=== PATIENT | male | born 1980 | race American Indian/Alaskan Native ===

== ENCOUNTER 2017-12-02 21:35 | Emergency (ER) | payer BC ==
[2017-12-02 21:59] VITALS: BP 116/82; PULSE 95; RESP 18; TEMP 99.1; O2SAT 96; BMI 21.4
[2017-12-02] MEDS ORDERED: Sodium Chloride 0.9% 1,000 ML IV STA (23:23)
--- NOTE | 2017-12-02 23:34 | ED PDOC ---
Arrival/HPI - General Chief Complaint: High Blood Sugar Time Seen by Provider: 12/02/17 22:40 Historian: Patient - History of Present Illness Narrative History of Present Illness (Text): 12/02/17 23:33 A 37 year old male, whose past medical history includes diabetes, presents to the emergency department for evaluation of high blood sugar levels. Patient reports he went for a job physical, was advised to see his PMD for treatment of high blood sugar levels. Patient has not been compliant with Metformin medications. Patient denies any other complaints at this time. Symptom Onset: Sudden Symptom Course: Unchanged Activities at Onset: Rest Associated Symptoms (Text): none Past Medical History - Provider Review Nursing Documentation Reviewed: Yes - Cardiac Hx Cardiac Disorders: No - Pulmonary Hx Respiratory Disorders: No - Neurological Hx Neurological Disorder: No - HEENT Hx HEENT Disorder: No - Renal Hx Renal Disorder: No - Endocrine/Metabolic Hx Endocrine Disorders: Yes Hx Diabetes Mellitus Type 2: Yes - Hematological/Oncological Hx Blood Disorders: No - Integumentary Hx Dermatological Disorder: No - Musculoskeletal/Rheumatological Hx Musculoskeletal Disorders: No - Gastrointestinal Hx Gastrointestinal Disorders: No - Genitourinary/Gynecological Hx Genitourinary Disorders: No - Psychiatric Hx Psychophysiologic Disorder: No Hx Substance Use: No Family/Social History - Physician Review Nursing Documentation Reviewed: Yes Family/Social History: No Known Family HX Smoking Status: Never Smoked Hx Alcohol Use: No Hx Substance Use: No Allergies/Home Meds Allergies/Adverse Reactions: Allergies No Known Allergies Allergy (Verified 12/02/17 22:13) Review of Systems - Physician Review All systems were reviewed & negative as marked: Yes - Review of Systems Constitutional: absent: Fevers Neurological: absent: Headache Physical Exam Vital Signs Reviewed: Yes Vital Signs Temp Pulse Resp BP Pulse Ox 12/02/17 21:59 99.1 F 95 H 18 116/82 96 Temperature: Afebrile Blood Pressure: Normal Pulse: Regular Respiratory Rate: Normal Appearance: Positive for: Well-Appearing, Non-Toxic, Comfortable Pain Distress: None Mental Status: Positive for: Alert and Oriented X 3 Finger Stick Blood Glucose: 427 - Systems Exam Head: Present: Atraumatic, Normocephalic Pupils: Present: PERRL Extroacular Muscles: Present: EOMI Conjunctiva: Present: Normal Mouth: Present: Moist Mucous Membranes Neck: Present: Normal Range of Motion Respiratory/Chest: Present: Clear to Auscultation, Good Air Exchange. No: Respiratory Distress, Accessory Muscle Use Cardiovascular: Present: Regular Rate and Rhythm, Normal S1, S2. No: Murmurs Abdomen: No: Tenderness, Distention, Peritoneal Signs Back: Present: Normal Inspection Upper Extremity: Present: Normal Inspection. No: Cyanosis, Edema Lower Extremity: Present: Normal Inspection. No: Edema Neurological: Present: GCS=15, CN II-XII Intact, Speech Normal Skin: Present: Warm, Dry, Normal Color. No: Rashes Psychiatric: Present: Alert, Oriented x 3, Normal Insight, Normal Concentration Medical Decision Making ED Course and Treatment: 12/02/17 23:32 Impression: A 37 year old male with high blood sugar levels. Plan: -- IV fluids -- Reassess and disposition Progress Notes: 12/03/17 01:00 On re-evaluation, patient feels better and is in no acute distress. I have discussed the results and plan with the patient, who expresses understanding. Patient in agreement with plan to be discharged home. Patient is stable for discharge. Patient was instructed to follow up with physician or return if symptoms worsen or new concerning symptoms arise. - Lab Interpretations Lab Results: 12/03/17 00:01 Lab Results 12/03/17 00:41: POC Glucose (mg/dL) 328 H 12/03/17 00:01: Sodium 135, Potassium 4.1, Chloride 96 L, Carbon Dioxide 25, Anion Gap 18, BUN 17, Creatinine 0.7 L, Est GFR ( Amer) > 60, Est GFR ( Non-Af Amer) > 60, Random Glucose 431 H*, Calcium 9.7 I have reviewed the lab results: Yes - Medication Orders Current Medication Orders: Discontinued Medications Sodium Chloride (Sodium Chloride 0.9%) 1,000 mls @ 999 mls/hr IV .Q1H1M STA Stop: 12/03/17 00:23 Last Admin: 12/02/17 23:30 Dose: 999 mls/hr eMAR Start Stop Document 12/02/17 23:30 SS (Rec: 12/03/17 00:08 SS [id number]) Intravenous Solution Start Date 12/02/17 Start Time 23:30 End Date 12/03/17 End time 00:30 Total Infusion Time 60 Metformin HCl (Glucophage) 500 mg PO STAT STA Stop: 12/03/17 00:54 - Scribe Statement The provider has reviewed the documentation as recorded by the Sergio Duke Provider Scribe Attestation: All medical record entries made by the Scribe were at my direction and personally dictated by me. I have reviewed the chart and agree that the record accurately reflects my personal performance of the history, physical exam, medical decision making, and the department course for this patient. I have also personally directed, reviewed, and agree with the discharge instructions and disposition. Disposition/Present on Arrival - Present on Arrival Any Indicators Present on Arrival: No History of DVT/PE: No History of Uncontrolled Diabetes: Yes Urinary Catheter: No History of Decub. Ulcer: No History Surgical Site Infection Following: None - Disposition Have Diagnosis and Disposition been Completed?: Yes Diagnosis: Hyperglycemia, Diabetes mellitus Disposition: HOME/ ROUTINE Disposition Time: 00:55 Patient Plan: Discharge Patient Problems: Current Active Problems Problem Status Onset Diabetes mellitus Acute Hyperglycemia Acute Condition: STABLE Discharge Instructions (ExitCare): Type 2 Diabetes, Hyperglycemia, Adult (DC) Additional Instructions: Take your meds as prescribed/Must follow up with your doctor this week Prescriptions: metFORMIN [glucOPHAGE] 500 mg PO DAILY #21 tab Referrals: Nabil Tate MD [Primary Care Provider] - Follow up with primary Forms: [employer] (Korean)
[2017-12-03 00:39] LABS: BLOOD UREA NITROGEN 17 mg/dL (7-21); CALCIUM 9.7 mg/dL (8.4-10.5); GFR AFRICAN-AMERICAN > 60; GFR NON-AFRICAN AMERICAN > 60
== END 2017-12-03 01:26 | disposition home or self-care (01) ==
LOC: ED 21:35
DX: E11.65 Type 2 diabetes mellitus with hyperglycemia (principal)
CPT/HCPCS: 80048; 82948; 96360; 99283; J7040

== ENCOUNTER 2017-12-13 13:05 | Emergency (ER) | payer BC ==
[2017-12-13 13:06] VITALS: BMI 21.4
[2017-12-13 13:54] VITALS: RESP 18
[2017-12-13] MEDS ORDERED: Sodium Chloride 0.9% 1,000 ML IV STA ×2 (14:23→14:24)
--- NOTE | 2017-12-13 14:25 | ED PDOC ---
Arrival/HPI - General Chief Complaint: High Blood Sugar Time Seen by Provider: 12/13/17 14:22 Historian: Patient - History of Present Illness Narrative History of Present Illness (Text): 12/13/17 14:24 pt p/w + elevated GLUC from Dr Tate's office today; pt states this is not the first time with elevated GLUC; pt states last month he skipped nearly 1 month of his metformin medication because he couldn't obtain the medication; pt arrived to ED few weeks ago and was noted to have severely elevated GLUC and was treated in the ED and represcribed his missing metformin; pt states he has been taking his metformin regularly since then ~ 1-2 weeks ago); pt's check-up/ follow up with Dr Tate (his PCP) was today and at the office noted similarly elevated GLUC; pt states he felt occasional dizziness/weakness, + mild polyuria/ polydipseia; pt states no other complaints otherwise; pt states no fever/chills/ sweats, no cp/sob/palpitations, no abd pain, no n/v, no numbness/tingling, no urinary/bowel changes, no rashes/lesions/bleeding, pt denied slurr speech/ vision changes, no other complaints pt is here for further eval PCP: DR Tate pt is right hand dominate Time/Duration: Prior to Arrival Symptom Onset: Sudden Symptom Course: Unchanged Activities at Onset: Rest Context: Home, Other (Dr Tate's office) Past Medical History - Provider Review Nursing Documentation Reviewed: Yes - Travel History Have you recently traveled outside [place] w/in the past 3 mons?: No - Past History Past History: Non-Contributing - Infectious Disease Hx of Infectious Diseases: None - Cardiac Hx Cardiac Disorders: No - Pulmonary Hx Respiratory Disorders: No - Neurological Hx Neurological Disorder: No - HEENT Hx HEENT Disorder: No - Renal Hx Renal Disorder: No - Endocrine/Metabolic Hx Endocrine Disorders: Yes Hx Diabetes Mellitus Type 2: Yes - Hematological/Oncological Hx Blood Disorders: No - Integumentary Hx Dermatological Disorder: No - Musculoskeletal/Rheumatological Hx Musculoskeletal Disorders: No - Gastrointestinal Hx Gastrointestinal Disorders: No - Genitourinary/Gynecological Hx Genitourinary Disorders: No - Psychiatric Hx Psychophysiologic Disorder: No Hx Substance Use: No Family/Social History - Physician Review Nursing Documentation Reviewed: Yes Family/Social History: No Known Family HX Smoking Status: Never Smoked Hx Alcohol Use: No Hx Substance Use: No Hx Substance Use Treatment: No Allergies/Home Meds Allergies/Adverse Reactions: Allergies No Known Allergies Allergy (Verified 12/13/17 13:57) Home Medications: Home Meds Medication Instructions Recorded Confirmed metFORMIN [glucOPHAGE] 500 mg PO BID 12/13/17 12/13/17 Review of Systems - Review of Systems Constitutional: Normal Eyes: Normal ENT: Normal Respiratory: Normal Cardiovascular: Normal Gastrointestinal: Normal Genitourinary Male: Normal Musculoskeletal: Normal Skin: Normal Neurological: Dizziness, Other (mild weakness) Endocrine: Normal Hemo/Lymphatic: Normal Psychiatric: Normal Physical Exam Vital Signs Reviewed: Yes Vital Signs Temp Pulse Resp BP Pulse Ox 12/13/17 18:16 98.2 F 82 18 124/72 98 12/13/17 15:12 83 18 129/76 100 12/13/17 13:52 98.3 F 79 18 123/75 95 Temperature: Afebrile Blood Pressure: Normal Pulse: Regular Respiratory Rate: Normal Appearance: Positive for: Well-Appearing, Non-Toxic, Comfortable, Other (alert/ awake, GCS = 15, oriented x 3, NAD, resting in bed, comfortable, cooperative, follows command with ease) Pain Distress: None Mental Status: Positive for: Alert and Oriented X 3 Finger Stick Blood Glucose: 456 - Systems Exam Head: Present: Atraumatic, Normocephalic Pupils: Present: PERRL, Other (no nystagmus, no photophobia, sclera anicteric, visual field intact b/l) Extroacular Muscles: Present: EOMI Conjunctiva: Present: Normal Ears: Present: Normal Mouth: Present: Moist Mucous Membranes, Normal Teeth, Other (no drooling/stridor , no exudate/lesions, uvula/tongue are midline, no dysphonia) Pharnyx: Present: Normal Nose (External): Present: Atraumatic Nose (Internal): Present: Normal Inspection Neck: Present: Normal Range of Motion, Trachea Midline, Other (intact ROM, no midline tenderness). No: Meningeal Signs, MIDLINE TENDERNESS, Paraspinal Tenderness Respiratory/Chest: Present: Clear to Auscultation, Good Air Exchange, Other ( CTA b/l, no w/r/r, no tachypenia). No: Respiratory Distress, Accessory Muscle Use Cardiovascular: Present: Regular Rate and Rhythm, Normal S1, S2. No: Murmurs Abdomen: Present: Normal Bowel Sounds, Other (well nourished male, no focal tenderness, no masses/rebound/guarding/rigidity; no العراقي's sign, no mcburney' s point tenderness). No: Tenderness, Distention Back: Present: Normal Inspection. No: CVA Tenderness, Midline Tenderness, Paraspinal Tenderness, Pain with Leg Raise Upper Extremity: Present: Normal Inspection, Normal ROM, NORMAL PULSES, Neurovascularly Intact, Capillary Refill < 2s Lower Extremity: Present: Normal Inspection, NORMAL PULSES, Normal ROM, Neurovascularly Intact, Capillary Refill < 2 s Neurological: Present: GCS=15, CN II-XII Intact, Speech Normal Skin: Present: Warm, Normal Color, Other (cap refill < 1sec, no ulcerations, no petechiae, no rashes) Psychiatric: Present: Alert, Oriented x 3 Medical Decision Making ED Course and Treatment: 12/13/17 14:24 Impression: mild weakness, elevated FS i have consider all the differential diagnosis regarding pt's chief medical complaints/clinical findings, including but are not limited to: mild weakness, elevated FS A/P: mild weakness, elevated FS - labs - iv - supportive care - observe/reevaluation 1600 pt felt improved pt tolerated po well FS is improving gradually 12/13/17 18:26 I try to contact Dr Tate at the office but the office was closed pt remained comfortable pt tolerated po well pt states he is due to f/u with a endocrinologists in 4 days as originally scheduled pt is encouraged to see this doctor vital signs remained stable pt is made aware of his medical results pt is encouraged fluids pt is reminded to keep taking his medications pt is encouraged to keep a BS diary pt will f/u as directed pt will be discharged home Re-evaluation Time: 17:40 Reassessment Condition: Improved - Lab Interpretations Lab Results: 12/13/17 14:30 12/13/17 14:30 Lab Results 12/13/17 17:37: POC Glucose (mg/dL) 196 H 12/13/17 15:50: POC Glucose (mg/dL) 340 H 12/13/17 14:30: Serum Osmolality 300 12/13/17 14:30: pO2 75 H, VBG pH 7.38, VBG pCO2 44.0, VBG HCO3 26.0, VBG Total CO2 27.4, VBG O2 Sat (Calc) 97.4 H, VBG Base Excess 0.5, VBG Potassium 4.3, Sodium 133.0, Chloride 98.0, Glucose 476 H*, Lactate 1.1, FiO2 21.0, Venous Blood Potassium 4.3 12/13/17 14:30: Sodium 134, Chloride 99, Potassium 4.1, Carbon Dioxide 24, Anion Gap 15, BUN 17, Creatinine 0.8, Est GFR ( Amer) > 60, Est GFR (Non- Af Amer) > 60, Random Glucose 457 H*, Calcium 9.1, Total Bilirubin 0.6, AST 21, ALT 22, Alkaline Phosphatase 145 H, Total Protein 7.2, Albumin 4.0, Globulin 3.3 , Albumin/Globulin Ratio 1.2, Lipase 421 H 12/13/17 14:30: WBC 6.8, RBC 3.89, Hgb 11.8 L, Hct 34.8 L, MCV 89.5, MCH 30.3, MCHC 33.9, RDW 12.3, Plt Count 312, MPV 9.8, Gran % 50.5, Lymph % (Auto) 42.2 H , [place] % (Auto) 6.2 H, Eos % (Auto) 0.7 L, Baso % (Auto) 0.4, Gran # 3.41, Lymph # (Auto) 2.9, [place] # (Auto) 0.4, Eos # (Auto) 0.1, Baso # (Auto) 0.03 12/13/17 13:44: POC Glucose (mg/dL) 456 H* I have reviewed the lab results: Yes Interpretation: Abnormal lab values (elevated GLUC but improving) - EKG Interpretation EKG Interpretation (Text): 12/13/17 18:20 NSR at 80 bpm, normal axis, no ectopy, no st-t changes, NORMAL EKG; no old ekg to compare with Interpreted by ED Physician: Yes Type: 12 lead EKG Comparison: No previous EKG avail. - Medication Orders Current Medication Orders: Discontinued Medications Sodium Chloride (Sodium Chloride 0.9%) 1,000 mls @ 999 mls/hr IV .Q1H1M STA Stop: 12/13/17 15:23 Last Admin: 12/13/17 14:38 Dose: 999 mls/hr eMAR Start Stop Document 12/13/17 14:38 SRE (Rec: 12/13/17 14:39 SRE [id number]) Intravenous Solution Start Date 12/13/17 Start Time 14:25 End Date 12/13/17 End time 15:25 Total Infusion Time 60 Sodium Chloride (Sodium Chloride 0.9%) 1,000 mls @ 999 mls/hr IV .Q1H1M STA Stop: 12/13/17 15:24 Last Admin: 12/13/17 14:55 Dose: 999 mls/hr eMAR Start Stop Document 12/13/17 14:55 SRE (Rec: 12/13/17 14:56 SRE [id number]) Intravenous Solution Start Date 12/13/17 Start Time 14:55 End Date 12/13/17 End time 15:55 Total Infusion Time 60 Insulin Human Regular (Humulin R) 10 units IV ONCE ONE Stop: 12/13/17 16:14 Last Admin: 12/13/17 16:23 Dose: 10 units eMAR Start Stop Document 12/13/17 16:23 SRE (Rec: 12/13/17 16:24 SRE [id number]) Intravenous Solution Start Date 12/13/17 Start Time 16:24 End Date 12/13/17 End time 16:25 Total Infusion Time 1 MAR Blood Glucose Document 12/13/17 16:23 SRE (Rec: 12/13/17 16:24 SRE [id number]) Blood Glucose Finger Stick Blood Glucose (70-120) 340 Metformin HCl (Glucophage) 500 mg PO STAT STA Stop: 12/13/17 17:43 Disposition/Present on Arrival - Present on Arrival Any Indicators Present on Arrival: No History of DVT/PE: No History of Uncontrolled Diabetes: Yes Urinary Catheter: No History of Decub. Ulcer: No History Surgical Site Infection Following: None - Disposition Have Diagnosis and Disposition been Completed?: Yes Diagnosis: Hyperglycemia due to type 2 diabetes mellitus Disposition: HOME/ ROUTINE Disposition Time: 18:00 Patient Plan: Discharge Condition: STABLE Discharge Instructions (ExitCare): Hyperglycemia, Adult Print Language: LUXEMBOURGISH Additional Instructions: Make sure to see your doctor in 1-2 days Make sure you follow up with your endocrinologists appointment in 4 days as originally scheduled DRINK PLENTY OF FLUIDS take your medications as prescribed Encourage you to keep a blood sugar diary (once in the morning, and once at night) RETURN TO ED IF worse pain, cant breath, persistent vomiting, high fever >101- 102 for hours, altered behavior, slurr speech, facial changes, focal weakness ( arm/leg or both), unable to urinate, heavy/persistent bleeding, passing out, chest pain, or other medical emergencies Referrals: Nabil Tate MD [Family Provider] - Follow up with primary Forms: [employer] (Haitian)
[2017-12-13 15:00] LABS: BASO # 0.03 K/mm3 (0.0-2.0); BASO % 0.4 % (0.0-3.0); EOS # 0.1 (0.0-0.7); EOS % 0.7 % (1.5-5.0); GRAN # 3.41 (1.4-6.5); GRAN % 50.5 % (50.0-68.0); HEMOGLOBIN 11.8 g/dL (14.0-18.0); LYMPH # 2.9 (1.2-3.4); LYMPH % 42.2 % (22.0-35.0); MEAN CELL VOLUME 89.5 fl (80.0-105.0); MEAN CORPUSCULAR HEMOGLOBIN 30.3 pg (25.0-35.0); MEAN CORPUSCULAR HGB CONC 33.9 g/dl (31.0-37.0); MEAN PLATELET VOLUME 9.8 fl (7.0-11.0); MONO # 0.4 (0.1-0.6); MONO % 6.2 % (1.0-6.0); RBC 3.89 10^6/uL (3.5-6.1); RED CELL DISTRIBUTION WIDTH 12.3 % (11.5-14.5); WHITE BLOOD COUNT 6.8 10^3/ul (4.5-11.0)
[2017-12-13 15:03] LABS: VENOUS BLOOD GAS BASE EXCESS 0.5 mmol/L (0.0-2.0); VENOUS BLOOD GAS PO2 75 mm/Hg (30-55); VENOUS BLOOD PH 7.38 (7.32-7.43)
[2017-12-13 15:12] LABS: ALB/GLOB RATIO 1.2 (1.1-1.8); ALT/SGPT 22 U/L (7-56); AST/SGOT 21 U/L (17-59); BLOOD UREA NITROGEN 17 mg/dL (7-21); CALCIUM 9.1 mg/dL (8.4-10.5); GFR AFRICAN-AMERICAN > 60; GFR NON-AFRICAN AMERICAN > 60; LIPASE 421 U/L (23-300)
[2017-12-13] MEDS ORDERED: Insulin Regular 1 UNITS/0.01 ML ML IV ONE (16:13)
[2017-12-13 18:17] VITALS: BP 124/72; PULSE 82; TEMP 98.2; O2SAT 98
--- NOTE | 2017-12-13 18:47 | CARD ---
APPROVED REPORT EKG Measurement Heart [id number] <Conclusion> Normal sinus rhythm Normal ECG
== END 2017-12-13 18:17 | disposition home or self-care (01) ==
LOC: ED 13:05
DX: E11.65 Type 2 diabetes mellitus with hyperglycemia (principal); Z79.84 Long term (current) use of oral hypoglycemic drugs
CPT/HCPCS: 80053; 82010; 82803; 82948; 83690; 83930; 85025; 93005; 96361; 96374; 99284; J7040